=== PATIENT | female | born 1990 | race Caucasian/White ===

== ENCOUNTER 2020-06-03 19:00 | Emergency (ER) | payer OTHER ==
[~2020-06-03] VITALS: Ht 154.9 cm; Wt 54.4 kg
[~2020-06-03 19:00] MED LIST: ORAPRED15 MG/5 ML PO
[2020-06-03] MEDS ORDERED: FLEXERIL PO (21:16)
[2020-06-03 21:29] VITALS: BP 110/65
== END 2020-06-03 21:30 | disposition home or self-care (01) ==
LOC: M.ERS 19:00
DX: O26.891 Other specified pregnancy related conditions, first trimester (principal); S16.1XXA Strain of muscle, fascia and tendon at neck level, initial encounter; M54.6 Pain in thoracic spine; Z3A.11 11 weeks gestation of pregnancy; Z98.890 Other specified postprocedural states; Z86.19 Personal history of other infectious and parasitic diseases; Z88.0 Allergy status to penicillin; W22.8XXA Striking against or struck by other objects, initial encounter; Y93.89 Activity, other specified; Y92.89 Other specified places as the place of occurrence of the external cause; Y99.8 Other external cause status